=== PATIENT | male | born 1940 | race Caucasian/White ===

== ENCOUNTER → 2016-10-08 | Outpatient (CLI) | payer OTHER ==
[~2016-10-08] MED LIST: ADVIN25050 INH; FERR325T51 PO; FRS/40 PO; IMDSR30 PO; IPRASOL4 INH; OMEP20TA PO; TIOTCAP INH
[2016-10-08 13:24] LABS: BASO % 1.1 %; BASO ABS # 0.08 K/uL (0-0.2); COMPLETE YES; EOS % 1.1 %; HEMATOCRIT 42.4 % (42-52); IG% 0.7 %; LYMPH % 14.6 %; LYMPH ABS # 1.11 K/uL (1.2-3.4); MEAN CORPUSCULAR HEMOGLOBIN 31.7 pg (25-34); MEAN CORPUSCULAR HGB CONC 33.7 g/dl (32-36); MEAN PLATELET VOLUME 9.2 fL (7.4-10.4); MONO % 10.6 %; NEUT % 71.9 %; PLATELET COUNT 346 K/uL (130-400); RED BLOOD COUNT 4.51 M/uL (4.7-6.1); WHITE BLOOD COUNT 7.58 K/uL (4.8-10.8)
[2016-10-08 13:57] LABS: ALKALINE PHOSPHATASE 105 U/L (45-117); ALT/SGPT 19 U/L (12-78); BLOOD UREA NITROGEN 20 mg/dl (7-18); BUN/CREATININE RATIO 21.1 (10-20); CALCIUM 8.9 mg/dl (8.5-10.1); CARBON DIOXIDE 30 mmol/L (21-32); CHLORIDE 94 mmol/L (98-107); CHOLESTEROL 266 mg/dl (0-200); CREATININE 0.93 mg/dl (0.60-1.40); GLUCOSE 102 mg/dl (70-99); POTASSIUM 4.6 mmol/L (3.5-5.1); SODIUM 130 mmol/L (136-145); TRIGLYCERIDES 127 mg/dl (0-150); VERY LOW DENSITY LIPOPROT CALC 25 mg/dl
[2016-10-08 14:08] LABS: AST/SGOT 18 U/L (15-37); CHOLESTEROL/HDL RATIO 4.2; HDL CHOLESTEROL 63 mg/dl; LDL CHOLESTEROL CALCULATED 178 mg/dl
== END | disposition home or self-care (01) ==
LOC: C.LABBC 10:32
PROVIDERS: ATTEND Family Medicine
DX: E87.1 Hypo-osmolality and hyponatremia (principal); Z13.220 Encounter for screening for lipoid disorders; E53.8 Deficiency of other specified B group vitamins